=== PATIENT | female | born 1950 | race Caucasian/White ===

== ENCOUNTER 2020-05-18 06:14 | Day surgery (SDC) | payer OTHER, BC ==
--- NOTE | 2020-05-17 08:03 | EKG ---
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 BRADEN : 1950 Requested By: Benito Long Order Number: [id number] MD: Chris Weaver Measurements Intervals [place] Rate: 78 P: 1 [place]: 188 QRS: -29 QRSD: 159 T: 23 QT: 419 QTc: 478 Interpretive Statements Sinus rhythm Right bundle branch block Compared to ECG 12/22/2007 10:37:17 No significant changes Electronically Signed On 05-17-2020 8:02:34 CDT by Chris Weaver [email or web address] <ELECTRONICALLY SIGNED> By: Chris Weaver MD, [facility]GED WITH [facility] 06/801 1526 152 Chris Weaver MD, MERGED WITH [facility] /EPI
[~2020-05-18] VITALS: Ht 177.8 cm; Wt 113.4 kg
[~2020-05-18 06:14] MED LIST: IBU800 MG PO; PRINIVIL10 MG PO; TYLENOL EXTRA500 MG PO; VIACTIV 650 MG1 EACH PO
[2020-05-18 08:10] VITALS: BP 142/96
--- NOTE | 2020-05-18 16:38 | O ---
[address] [address] OPERATIVE REPORT Name: NILS ALVAREZ Room #: DEP [facility].#: [id number] Admission: 05/18/20 Attend Phys: Benito Long MD Discharge: 05/18/20 Date of : 52 Report #: [id number] THIS REPORT FOR: cc: FAM - Family physician unknown FAM - Family physician unknown Benito Long MD ~ CC: [facility] unknown OSCAR Jauregui Titus Long DATE OF SERVICE: 05/18/2020 SERVICE: Orthopedics. FACILITY: [employer]. SURGEON: Benito Long M.D. FIRER POWERHOUSE: None. PREOPERATIVE DIAGNOSES: 1. Right hip pain. 2. Subacute right hip femoral neck fracture. POSTOPERATIVE DIAGNOSES: 1. Right hip pain. 2. Subacute right hip femoral neck fracture. PROCEDURE: Closed reduction and percutaneous pinning, right femoral neck fracture. COMPLICATIONS: None. DRAINS: None. SPECIMENS: None. ANESTHESIA: General. FINDINGS: Synthes 7.3 mm cannulated screw x 3 with 85 mm and two 90 mm screws. HISTORY: The patient is a 69-year-old female who fell about 10 weeks ago and sustained a slightly displaced right femoral neck fracture. She presented for delayed medical care. She was concerned about going to the Emergency Room due to the coronavirus pandemic and her 's significant illness. She had [address] [address] OPERATIVE REPORT Name: NILS ALVAREZ Room #: DEP [facility]#: [id number] Admission: 05/18/20 Attend Phys: Benito Long MD Discharge: 05/18/20 Date of : 52 Report #: [id number] x-rays, which were negative and she had an MRI, which showed a femoral neck fracture and she was referred to the Orthopedic office where we got a CT scan and confirmed that she had an incomplete union and I was concerned about the risk of displacement of this fracture line being a partial nonunion and causing her severe issues including need for emergent hip arthroplasty. She was in agreement with the approach to pin this in situ and give her a higher chance of successful healing without severe complication. Risks, benefits, alternatives, and indication of surgery discussed with her. Risks include but not limited to pain, bleeding, infection, malunion, nonunion, need for further surgery including revision as well as complications related to anesthesia such as stroke, heart attack, pulmonary complications, thromboembolic disease and . Despite these risks, she wished to proceed. PROCEDURE IN DETAIL: After right lower extremity was correctly identified in the preoperative holding area as the operative extremity, the patient was taken to the operating room where general anesthesia was induced without complication. She was padded appropriately. Prophylactic antibiotics were administered at appropriate time. She was positioned appropriately. We brought C-arm in to assess the AP and lateral. The fracture maintained its alignment and did not displace. Right leg was then prepped and draped in standard sterile fashion. Timeout procedure performed. Using C-arm fluoroscopy in multiple planes, we placed 3 guide pins through a 1 inch incision on the lateral aspect of the hip in an inverted triangle fashion with divergent screw trajectories and then reamed the lateral cortex. The first screw was placed partially threaded on the superior side where the nonunion was most significant and I placed a 16 mm partial thread here and then 2 more distal screws were placed with 32 mm thread which provided good fixation in the bone. Final x-rays were taken confirming good hardware position. The wound was irrigated. The deep layer was closed with 0 Vicryl. The skin was closed with Vicryl and skin jenifer. Sterile dressing was applied. The patient was awakened from anesthesia and taken to recovery room in stable condition. No complications. All counts were recorded as correct. <ELECTRONICALLY SIGNED> By: Benito Long MD 05/18/20 1638 [id number] Benito Long MD /nt
== END 2020-05-18 09:05 | disposition home or self-care (01) ==
LOC: TBA 06:14 → OR 06:14
PROVIDERS: ATTEND Orthopaedic Surgery Sports Medicine
DX: M25.551 Pain in right hip (principal); S72.001A Fracture of unspecified part of neck of right femur, initial encounter for closed fracture; I10 Essential (primary) hypertension; Z90.49 Acquired absence of other specified parts of digestive tract; Z98.890 Other specified postprocedural states; Z90.710 Acquired absence of both cervix and uterus; Z79.899 Other long term (current) drug therapy; Z88.8 Allergy status to other drugs, medicaments and biological substances; X58.XXXA Exposure to other specified factors, initial encounter; Y93.89 Activity, other specified; Y92.89 Other specified places as the place of occurrence of the external cause; Y99.8 Other external cause status
CPT/HCPCS: 50010; 50101; 50386; 51412; 51538; 52304; 53400; 53404; 56524; 57092; 62110; 62900; 70005